=== PATIENT | male | born 1980 | race Caucasian/White ===

== ENCOUNTER 2016-09-16 19:53 | Inpatient (IN) | payer OTHER ==
--- NOTE | ~2016-09-16 | PN ---
Unit #: [id number] #: [id number] Patient: JESS ESCOTO [id number] [facility] [address] [place] [address] [id number] MR#: [id number] NAME: JESS ESCOTO ROOM: P123 Age: 36 Sex: M Admission Date: 09/16/2016 : 1980 Attending Physician: Delroy Medina M.D. Admitting Physician: Delroy Medina M.D. Primary Care Physician: Primary Care Physician Angélica JONES PROGRESS NOTES DATE 09/20/2016 DISCUSSION Mr. Escoto is a 36-year-old, white male who was seen today and chart was reviewed and case was discussed with the staff. He has been complaining of persistent anxiety despite several different medication adjustments and has been asking for benzodiazepines and particular has been told about the addictive potential and level of (1)____ discomfort in prescribing him those kind of medications. Meanwhile, he reports feeling somewhat better today and feel the medications are finally starting to work. MENTAL STATUS EXAM Young white male who was casually dressed with fair personal hygiene, appears to be in no acute distress or discomfort. He was awake and alert on interaction with intact orientation. His mood was anxious with congruent affect. He denies any suicidal or homicidal ideation. Also, denies any auditory or visual hallucinations. His insight and judgement remains slightly impaired. TREATMENT PLAN We will continue him on his current treatment protocol. We will monitor his response and make further adjustments as needed. Dictated by... Humberto Madrigal/petrona TD: 09/23/2016 02:42 JOB #: [id number] [facility] PROGRESS NOTES X Delroy Medina MD PROGRESS NOTE
--- NOTE | ~2016-09-16 | HP ---
Unit #: [id number] #: [id number] Patient: TOMÁS WORKMAN [id number] [place] [address] [id number] I MR#: [id number] NAME: TOMÁS WORKMAN ROOM: P123 Age: 36 Sex: M Admission Date: 09/16/2016 : 1980 Attending Physician: Delroy Medina M.D. Admitting Physician: Delroy Medina M.D. Primary Care Physician: Primary Care Physician No HISTORY AND PHYSICAL HISTORY OF PRESENT ILLNESS Tomás is a 36 year old admitted to [address] [place] [address] reporting paranoia. PAST MEDICAL HISTORY Migraine headaches. PAST SURGICAL HISTORY Nothing reported. ALLERGIES Penicillin. SOCIAL HISTORY Smokes 1 pack per day. Denies alcohol and illicit drug use. FAMILY HISTORY Medically noncontributory. REVIEW OF SYSTEMS He does not answer questions appropriately. There are no reports of nausea, vomiting or diarrhea. He has had no cough or increased temperature. CURRENT MEDICATIONS 1. Seroquel 200 mg q.h.s. 2. Vistaril 50 mg q. 6 hours p.r.n. 3. Prozac 20 mg daily. 4. Milk of Magnesia p.r.n. 5. Maalox p.r.n. 6. Tylenol p.r.n. PHYSICAL EXAMINATION GENERAL: Alert, well-nourished, in no apparent distress. VITAL SIGNS: Blood pressure 110/70, heart rate 70, respirations 16, temperature 98.6. WEIGHT: 179. HEIGHT: 6 feet 2 inches. SKIN: Warm and dry without rash or lesion. HEENT: Normocephalic. TMs not viewed. Oral and nasal passages clear. Conjunctivae clear. PERRLA. EOMs intact. NECK: Supple without lymphadenopathy or thyromegaly. HEART: Regular rate and rhythm without murmur. LUNGS: Clear. Unit #: [id number] #: [id number] Patient: TOMÁS WORKMAN ABDOMEN: Soft, nontender. : Not done. EXTREMITIES: No evidence of cyanosis, clubbing or edema. Moves all without focal deficit. NEUROLOGICAL: Unable to complete extended exam. He does move all extremities without focal deficit. 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 IMPRESSION Psychiatric admission. RECOMMENDATIONS PSYCHIATRIC: Per psychiatrist. MEDICAL: See no contraindications to participate in facility's activities. MEDICAL PROGNOSIS Good. MEDICAL CONDITION Stable. Dictated by... Lavern Santiago P.A.-C. for Humberto Garcia/sudha TD: 09/17/2016 16:17 JOB #: [id number] HISTORY AND PHYSICAL X Lavern Santiago PA X HISTORY AND PHYSICAL
--- NOTE | ~2016-09-16 | PN ---
Unit #: [id number] #: [id number] Patient: JESS ESCOTO [id number] [facility] [address] [place] [address] [id number] MR#: [id number] NAME: JESS ESCOTO ROOM: P123 Age: 36 Sex: M Admission Date: 09/16/2016 : 1980 Attending Physician: Delroy Medina M.D. Admitting Physician: Delroy Medina M.D. Primary Care Physician: Primary Care Physician Angélica JONES PROGRESS NOTES DATE 09/19/2016 DISCUSSION Mr. Escoto is a 36-year-old white male who was seen today and chart was reviewed and case was discussed with the staff. He has been anxious, withdrawn and rather seclusive to himself. Meanwhile, he has been cooperative with treatment recommendations and has been taking medications and tolerating them fairly well with no reported side effects. MENTAL STATUS EXAMINATION Young white male who was casually dressed with fair personal hygiene and appears to be in no acute distress or discomfort. He was awake and alert on interaction with intact orientation. His mood was anxious with congruent affect. His speech is slow and goal-directed. He denies any suicidal or homicidal ideations. His insight and judgement remains slightly impaired. TREATMENT PLAN 1. Will continue him on his current medications and treatment protocol and will monitor his response to the medications and make further adjustments as needed. 2. Will continue to follow up. Dictated by... Humberto Madrigal/sudha TD: 09/20/2016 15:49 JOB #: [id number] Unit #: [id number] #: [id number] Patient: JESS ESCOTO [facility] PROGRESS NOTES X Delroy Medina MD PROGRESS NOTE
--- NOTE | ~2016-09-16 | PN ---
Unit #: [id number] #: [id number] Patient: JESS WORKMAN [id number] [facility] [address] [place] [address] [id number] I MR#: [id number] NAME: JESS WORKMAN ROOM: P110 Age: 36 Sex: M Admission Date: 09/16/2016 : 1980 Attending Physician: Delroy Medina M.D. Admitting Physician: Delroy Medina M.D. Primary Care Physician: Primary Care Physician Angélcia EAST NOTES DATE OF SERVICE: 09/22/2016 SUBJECTIVE Mr. Yarbrough is a 36-year-old white male who was seen today and chart was reviewed and case was discussed with the staff. He has been anxious, withdrawn, though has not shown any agitation, irritability, or behavioral problems, and has been cooperative with treatment recommendation as he has been taking the medications and tolerating them fairly well with no reported side effects. MENTAL STATUS EXAMINATION Young white male who was casually dressed with fair personal hygiene and appears to be in no acute distress or discomfort. He was awake and alert on interaction with intact orientation. His mood was anxious with a congruent affect. He denies any suicidal or homicidal ideations. His insight and judgment remain slightly impaired. TREATMENT PLAN 1. We will continue him on his current medications and treatment protocol. We will monitor his response to medications and make further adjustments as needed. 2. We will continue to follow up. Dictated by... Humberto Madrigal/elsy TD: 09/24/2016 07:21 JOB #: [id number] [facility] PROGRESS NOTES X Delroy Medina MD PROGRESS NOTE
--- NOTE | ~2016-09-16 | PA ---
Unit #: [id number] #: [id number] Patient: JESS WORKMAN [id number] [facility] [address] [place] [address] [id number] I MR#: [id number] NAME: JESS WORKMAN ROOM: P123 Age: 36 Sex: M Admission Date: 09/16/2016 : 1980 Date of Assessment: Attending Physician: Delroy Medina M.D. Admitting Physician: Delroy Medina M.D. Primary Care Physician: Primary Care Physician No PSYCHIATRIC ASSESSMENT DATE OF SERVICE 09/17/2016. IDENTIFYING DATA Mr. Yarbrough is a 36-year-old single white male, who is a resident of [place], [place] and was transferred to from [facility]. CHIEF COMPLAINT "I've been experiencing paranoia." HISTORY OF PRESENT ILLNESS Mr. Yarbrough is a 36-year-old single white male, who was transferred to us from [facility] where he presented reports that he has been experiencing paranoia for approximately 2 weeks and complains of migraine during the past 2 weeks as well. Attending doctor reported the patient stated that he is hearing voices, telling him to harm himself, and has been engaging in self-harming behavior including hitting his head against the wall. He has been unemployed for approximately 6 weeks and is currently homeless and stated that he will be in a homeless detention and reports that he has a stressful relationship with people and reports feeling depressed for approximately 14 years and reports that his depression has increased in the last couple of weeks and endorses feelings of hopelessness and helplessness, and some suicidal ideations and auditory hallucinations and paranoid ideations and as such, recommendation for inpatient level of care for safety and stabilization was made and the patient was transferred to us. SUBSTANCE ABUSE HISTORY The patient denies any alcohol or drug abuse. PAST PSYCHIATRIC HISTORY The patient has had history of inpatient psychiatric hospitalization in [place] in 2016. Review of the medical records indicated that he is currently on Seroquel 100 mg at bedtime and does not appear to be showing a therapeutic response to medications. PAST MEDICAL HISTORY The patient's medical history is significant for migraine headaches. ALLERGIES Penicillin. PERSONAL AND SOCIAL HISTORY Unit #: [id number] #: [id number] Patient: JESS WORKMAN A 35-year-old white male, who reports that he is single, unemployed, and homeless and has poor social support system. MENTAL STATUS EXAMINATION Young white male who was casually dressed with fair personal hygiene, appears to be in no acute distress or discomfort. He was awake and alert on interaction with intact orientation to time, place, and person. His mood was anxious and depressed with a congruent affect. His speech was slow and goal directed. He reports having suicidal ideations as well as auditory hallucinations and paranoid ideations. His insight and judgment remain significantly impaired. DIAGNOSTIC IMPRESSION Psychiatric: Major depressive disorder, recurrent, moderate, with psychosis. Medical: None. Stressors: Moderate psychosocial stressors. TREATMENT PLAN 1. The patient has presented with history of mood disorder and has been decompensating and will need inpatient hospitalization for safety and stabilization. We will start him back on his home medications. We will adjust the medications and monitor response. 2. Supportive therapy was provided to the patient. 3. Safe, structured, and nourishing environment will be provided. ESTIMATED LENGTH OF STAY 5 to 7 days. ABILITY TO HELP SELF Limited. WILLINGNESS TO HELP SELF The patient appears to be willing to help self. STRENGTHS 1. Communicative. 2. Cooperative. PROBLEMS 1. Chronic dysphoric symptoms. 2. Poor social support system. DISCHARGE CRITERIA This will be contingent upon the patient's ability to show resolution of his depression and his ability to stay safe to himself, particularly after discharge from the hospital. Dictated by... Humberto Madrigal/elsy TD: 09/17/2016 07:03 JOB #: [id number] Unit #: [id number] #: [id number] Patient: JESS WORKMAN PSYCHIATRIC ASSESSMENT X Delroy Medina MD X PSYCHIATRIC ASSESSMENT
--- NOTE | ~2016-09-16 | PN ---
Unit #: [id number] #: [id number] Patient: JESS ESCOTO [id number] [facility] [address] [place] [address] [id number] I MR#: [id number] NAME: JESS ESCOTO ROOM: P123 Age: 36 Sex: M Admission Date: 09/16/2016 : 1980 Attending Physician: Delroy Medina M.D. Admitting Physician: Delroy Medina M.D. Primary Care Physician: Primary Care Physician Angélica JONES PROGRESS NOTES DATE OF SERVICE: 09/21/2016 SUBJECTIVE Mr. Escoto is a 36-year-old white male, who was seen today and chart was reviewed and case was discussed with the staff. He has been anxious, withdrawn, though has not shown any agitation or irritability and he has been cooperative with treatment recommendation as he has been taking the medications and tolerating them fairly well with no reported side effects. MENTAL STATUS EXAMINATION Young white male who was casually dressed with fair personal hygiene and appears to be in no acute distress or discomfort. He was awake and alert on interaction with intact orientation. His mood was anxious with a congruent affect. His speech is slow and goal directed. He denies any suicidal or homicidal ideations. His insight and judgment remain slightly impaired. TREATMENT PLAN 1. We will continue him on his current medications and treatment protocol. We will monitor his response to medications and make further adjustments as needed. 2. We will continue to follow up. Dictated by... Humberto Madrigal/elsy TD: 09/23/2016 02:30 JOB #: [id number] [facility] PROGRESS NOTES X Delroy Medina MD PROGRESS NOTE
--- NOTE | ~2016-09-16 | DS ---
Unit #: [id number] #: [id number] [facility] [id number] [facility] [address] [place] [address] [id number] I MR#: [id number] NAME: JESS ESCOTO ROOM: [facility] Age: 36 Sex: M Admission Date: 09/16/2016 : 1980 Discharge Date: 09/23/2016 Attending Physician: Delroy Medina M.D. Primary Care Physician: Primary Care Physician No DISCHARGE SUMMARY IDENTIFYING DATA Mr. Escoto is a 36-year-old single white male who is a resident of [place], [place] was transferred to us from [facility]. DISCHARGE DIAGNOSES Psychiatric: Major depressive disorder, recurrent, moderate, without psychotic features; generalized anxiety disorder. Medical: None. Stressors: Moderate psychosocial stressors. HISTORY OF PRESENT ILLNESS Please see initial psychiatric evaluation for details. PAST PSYCHIATRIC HISTORY Please see initial psychiatric evaluation for details. PAST MEDICAL HISTORY Please see initial psychiatric evaluation for details. HOSPITAL COURSE The patient was admitted to the adult psychiatric unit at [facility] and was oriented to the hospital environment. Routine p.r.n. medications were initiated, and he was started back on his home medications and medications were adjusted. He was closely monitored. He was taking the medications regularly and was tolerating them fairly well and was able to show a decent therapeutic response with improvement in depression and anxiety and was willing to continue treatment on an outpatient basis and as such, it was decided that he will be discharged home and will continue treatment on an outpatient basis. DISCHARGE CONDITION Stable. PROGNOSIS Fair. Dictated by... uHmberto Madrigal/elsy TD: 09/23/2016 07:01 Unit #: [id number] #: [id number] Patient: JESS ESCOTO JOB #: [id number] DISCHARGE SUMMARY X Delroy Medina MD X DISCHARGE SUMMARY
--- NOTE | ~2016-09-16 | PN ---
Unit #: [id number] #: [id number] Patient: JESS ESCOTO [id number] [facility] [address] [place] [address] [id number] I MR#: [id number] NAME: JESS ESCOTO ROOM: P123 Age: 36 Sex: M Admission Date: 09/16/2016 : 1980 Attending Physician: Delroy Medina M.D. Admitting Physician: Delroy Medina M.D. Primary Care Physician: Primary Care Physician Angélica JONES PROGRESS NOTES DATE September 18, 2016 DISCUSSION Mr. Escoto is a 36-year-old white male, who was seen today and chart was reviewed and the case was discussed with the staff. He has been anxious, withdrawn, and rather seclusive to himself. He reports not feeling good and having yet a rough day yesterday with significant anxiety and restlessness, and that he was feeling like he wants to bang his head again a wall and Vistaril was initially given, but he stated that he has tried that before and that it does not do much and Thorazine was then given but then he stated that it just made him sedated. MENTAL STATUS EXAMINATION Young white male, who was casually dressed with fair personal hygiene and appears to be in no acute distress or discomfort. He was awake and alert on interaction with intact orientation. His mood is anxious and depressed with a congruent affect. His speech is slow and restricted in content. He reports having suicidal ideation, but denies any homicidal ideations, and also denies any auditory or visual hallucinations. His insight and judgment remain slightly impaired. TREATMENT PLAN 1. We will continue him on his current medications and treatment protocol, and will monitor his response to the medications, and make further adjustments as needed. We will encouraged him to keep taking Thorazine at this time. 2. We will continue to followup. Dictated by... Humberto Madrigal/reba TD: 09/19/2016 05:07 JOB #: [id number] Unit #: [id number] #: [id number] Patient: JESS ESCOTO [facility] PROGRESS NOTES X Delroy Medina MD NOTE
== END 2016-09-24 09:55 | disposition home or self-care (01) | DRG 885 ==
LOC: P1S 19:53
DX: F33.1 Major depressive disorder, recurrent, moderate (principal); F29 Unspecified psychosis not due to a substance or known physiological condition; R45.851 Suicidal ideations; Z56.0 Unemployment, unspecified; Z59.0 Homelessness; Z88.0 Allergy status to penicillin; F17.200 Nicotine dependence, unspecified, uncomplicated